=== PATIENT | male | born 1960 | race African-American/Black ===

== ENCOUNTER 2019-04-29 14:17 | Inpatient (IN) | payer OTHER, MEDICAID ==
[~2019-04-29] VITALS: Ht 180.3 cm; Wt 62.7 kg
[~2019-04-29 14:17] MED LIST: RISP1TAB26 PO
[2019-04-29 15:59] LABS: BASOPHILS % (AUTO) 0.9 % (0.0-2.0); EOSINOPHILS % (AUTO) 2.8 % (1.0-6.0); HEMATOCRIT 36.1 % (41-53); HEMOGLOBIN 11.7 g/dL (13.5-17.5); LYMPHOCYTES % (AUTO) 24.4 % (22.0-44.0); MEAN CORPUSCULAR HEMOGLOBIN 28.1 pg (26.0-34.0); MEAN CORPUSCULAR HGB CONC 32.3 G/dL (31.0-37.0); MEAN CORPUSCULAR VOLUME 87 fL (80-100); MONOCYTES # (AUTO) 0.4 K/uL (0.1-1.0); MONOCYTES % (AUTO) 9.9 % (2.0-9.0); NEUTROPHILS # (AUTO) 2.5 K/uL (1.8-7.7); PLATELET COUNT (AUTO) 288 K/uL (150-450); RED BLOOD CELL COUNT(AUTO) 4.15 MIL/uL (4.50-5.90); RED CELL DISTRIBUTION WIDTH 13.4 % (11.5-14.5)
[2019-04-29 16:12] LABS: ANION GAP 8 mmol/L (8-16); CALCIUM, TOTAL 8.8 mg/dL (8.8-10.5); CARBON DIOXIDE 26 mmol/L (22-29); CHLORIDE 104 mmol/L (98-107); CREATININE 1.17 mg/dL (0.60-1.30); GLOMERULAR FILTR. RATE CALC > 60 mL/min (>60); GLUCOSE,RANDOM 79 mg/dL (70-110); POTASSIUM 3.6 mmol/L (3.5-5.1); SODIUM SERUM 138 mmol/L (136-145); UREA NITROGEN, BLOOD 16 mg/dL (7-18)
[2019-04-29 16:17] LABS: ALANINE AMINOTRANSFERASE 14 U/L (12-78); ALKALINE PHOSPHATASE 130 U/L (46-116); ASPARTATE AMINOTRANSFERASE 21 U/L (15-37); BILIRUBIN,TOTAL 0.4 mg/dL (0.1-1.0); TOTAL PROTEIN, SERUM 7.4 g/dL (6.4-8.2)
[2019-04-29] MEDS ORDERED: ZOLPIDEM TARTRATE 10 MG TABLET PO PRN (17:30)
[2019-04-29] MEDS ORDERED: HALOPERIDOL 5 MG TABLET PO PRN (17:30)
[2019-04-29] MEDS ORDERED: LORazepam 2 MG TABLET PO PRN (17:30)
[2019-04-29 20:16] VITALS: BP 117/62
[2019-04-30 05:58] VITALS: BP 107/62
[2019-04-30 06:23] LABS: CHOL/HDL RATIO 2.5 (4.2-7.3); FREE T4 (FREE THYROXINE) 0.9 ng/dL (0.76-1.46); THYROID STIMULATING HORMONE 1.57 uIU/mL (0.36-3.74)
[2019-04-30] MEDS: NICOTINE 14 MG/24 HOUR PATCH TD SCH (09:00)
[2019-04-30 11:23] VITALS: BP 139/69
[2019-04-30 17:40] VITALS: BP 101/61
[2019-05-01 08:45] VITALS: BP 119/78
[2019-05-01] MEDS: NICOTINE 14 MG/24 HOUR PATCH TD SCH (09:00)
[2019-05-01] MEDS: RisperiDONE 1 MG TABLET PO SCH ×2 (09:19→16:25)
[2019-05-01 16:59] VITALS: BP 120/69
[2019-05-02 08:05] VITALS: BP 122/80
[2019-05-02] MEDS: RisperiDONE 1 MG TABLET PO SCH ×2 (08:06→17:32)
[2019-05-02] MEDS: MULTIVITAMINS WITH MINERALS, THERAPEUTIC TABLET PO SCH (08:06)
[2019-05-02] MEDS: NICOTINE 14 MG/24 HOUR PATCH TD SCH (08:12)
[2019-05-02 17:00] VITALS: BP 100/58
[2019-05-03 08:05] VITALS: BP 108/66
[2019-05-03] MEDS: NICOTINE 14 MG/24 HOUR PATCH TD SCH (09:00)
[2019-05-03] MEDS: RisperiDONE 1 MG TABLET PO SCH ×2 (10:06→17:03)
[2019-05-03] MEDS: MULTIVITAMINS WITH MINERALS, THERAPEUTIC TABLET PO SCH (10:06)
[2019-05-03 16:27] VITALS: BP 92/64
[2019-05-04] MEDS: NICOTINE 14 MG/24 HOUR PATCH TD SCH (09:00)
[2019-05-04 10:16] VITALS: BP 90/60
[2019-05-04] MEDS: RisperiDONE 1 MG TABLET PO SCH ×2 (10:42→17:03)
[2019-05-04] MEDS: MULTIVITAMINS WITH MINERALS, THERAPEUTIC TABLET PO SCH (10:42)
[2019-05-04 16:00] VITALS: BP 106/67
[2019-05-05 06:38] VITALS: BP 98/64
[2019-05-05] MEDS: RisperiDONE 1 MG TABLET PO SCH (08:11)
[2019-05-05] MEDS: NICOTINE 14 MG/24 HOUR PATCH TD SCH (08:11)
[2019-05-05] MEDS: MULTIVITAMINS WITH MINERALS, THERAPEUTIC TABLET PO SCH (08:11)
[2019-05-05 08:48] VITALS: BP 103/61
[2019-05-05 16:09] VITALS: BP 122/81
[2019-05-05] MEDS: RisperiDONE 2 MG TABLET PO SCH (16:46)
[2019-05-06 08:00] VITALS: BP 103/53
[2019-05-06] MEDS: MULTIVITAMINS WITH MINERALS, THERAPEUTIC TABLET PO SCH (09:00)
[2019-05-06] MEDS: NICOTINE 14 MG/24 HOUR PATCH TD SCH (09:00)
[2019-05-06] MEDS: RisperiDONE 2 MG TABLET PO SCH ×2 (09:01→16:51)
[2019-05-06 16:22] VITALS: BP 107/71
[2019-05-07] MEDS: NICOTINE 14 MG/24 HOUR PATCH TD SCH (09:00)
[2019-05-07] MEDS: MULTIVITAMINS WITH MINERALS, THERAPEUTIC TABLET PO SCH (09:00)
[2019-05-07] MEDS: RisperiDONE 2 MG TABLET PO SCH (09:29)
[2019-05-07 10:07] VITALS: BP 127/87
[2019-05-07] MEDS ORDERED: RISP2 PO (11:58)
== END 2019-05-07 15:15 | disposition home or self-care (01) | DRG 885 ==
LOC: EMS 14:17 → 3EX 18:41
PROVIDERS: ADMIT Psychiatry & Neurology Psychiatry; ATTEND Psychiatry & Neurology Psychiatry
DX: F20.0 Paranoid schizophrenia (principal); F12.90 Cannabis use, unspecified, uncomplicated; D72.819 Decreased white blood cell count, unspecified; D64.9 Anemia, unspecified; F17.210 Nicotine dependence, cigarettes, uncomplicated; F15.90 Other stimulant use, unspecified, uncomplicated; Z88.6 Allergy status to analgesic agent; Z88.0 Allergy status to penicillin; Z88.8 Allergy status to other drugs, medicaments and biological substances; Z91.018 Allergy to other foods
CPT/HCPCS: 84439; 84443; G0378; G0480

== ENCOUNTER 2019-06-22 18:47 | Inpatient (IN) | payer MEDICARE, MEDICAID ==
[~2019-06-22] VITALS: Ht 180.3 cm; Wt 61.7 kg
[~2019-06-22 18:47] MED LIST changes: -RISP1TAB26 PO; +RISP2 PO
[2019-06-22] MEDS ORDERED: HALOPERIDOL LACTATE 5 MG/ML VIAL IM ONE (19:00)
[2019-06-22] MEDS ORDERED: LORazepam 2 MG/ML VIAL IM ONE (19:00)
[2019-06-22] MEDS ORDERED: DiphenhydrAMINE HCL 50 MG/ML VIAL IM ONE (19:00)
[2019-06-22 19:21] LABS: BASOPHILS % (AUTO) 0.9 % (0.0-2.0); EOSINOPHILS % (AUTO) 2.1 % (1.0-6.0); HEMATOCRIT 39.9 % (41-53); HEMOGLOBIN 12.8 g/dL (13.5-17.5); LYMPHOCYTES # (AUTO) 1.2 K/uL (1.0-4.8); LYMPHOCYTES % (AUTO) 19.7 % (22.0-44.0); MEAN CORPUSCULAR HEMOGLOBIN 28.2 pg (26.0-34.0); MEAN CORPUSCULAR VOLUME 88 fL (80-100); MONOCYTES # (AUTO) 0.5 K/uL (0.1-1.0); NEUTROPHILS # (AUTO) 4.2 K/uL (1.8-7.7); NEUTROPHILS % (AUTO) 69.3 % (40.0-70.0); PLATELET COUNT (AUTO) 325 K/uL (150-450); RED BLOOD CELL COUNT(AUTO) 4.54 MIL/uL (4.50-5.90); RED CELL DISTRIBUTION WIDTH 13.6 % (11.5-14.5)
[2019-06-22 19:33] LABS: ANION GAP 11 mmol/L (8-16); CALCIUM, TOTAL 9.7 mg/dL (8.8-10.5); CARBON DIOXIDE 26 mmol/L (22-29); CHLORIDE 104 mmol/L (98-107); CREATININE 1.71 mg/dL (0.60-1.30); GLOMERULAR FILTR. RATE CALC 50 mL/min (>60); GLUCOSE,RANDOM 102 mg/dL (70-110); POTASSIUM 4.2 mmol/L (3.5-5.1); SODIUM SERUM 141 mmol/L (136-145); UREA NITROGEN, BLOOD 14 mg/dL (7-18)
[2019-06-22 19:40] LABS: ALANINE AMINOTRANSFERASE 12 U/L (12-78); ALBUMIN 3.5 g/dL (3.4-5.0); ALKALINE PHOSPHATASE 140 U/L (46-116); ASPARTATE AMINOTRANSFERASE 20 U/L (15-37); BILIRUBIN,TOTAL 0.4 mg/dL (0.1-1.0); TOTAL PROTEIN, SERUM 7.9 g/dL (6.4-8.2)
[2019-06-23 03:45] LABS: AMPHET/METH SCREEN,URINE POSITIVE (NEGATIVE); BARBITURATE SCREEN, URINE NEGATIVE (NEGATIVE); BENZODIAZEPINES SCREEN,URINE NEGATIVE (NEGATIVE); CANNABINOID SCREEN,URINE POSITIVE (NEGATIVE); COCAINE SCREEN,URINE POSITIVE (NEGATIVE); METHADONE SCREEN, URINE NEGATIVE (NEGATIVE); OPIATE SCREEN,URINE NEGATIVE (NEGATIVE); PHENCYCLIDINE SCREEN,URINE NEGATIVE (NEGATIVE)
[2019-06-23] MEDS ORDERED: LORazepam 2 MG TABLET PO PRN (09:45)
[2019-06-23] MEDS ORDERED: ZOLPIDEM TARTRATE 10 MG TABLET PO PRN (09:45)
[2019-06-23] MEDS ORDERED: HALOPERIDOL 5 MG TABLET PO PRN (09:45)
[2019-06-23 16:03] VITALS: BP 103/54
[2019-06-23] MEDS: RisperiDONE 2 MG TABLET PO SCH (16:37)
[2019-06-24] MEDS: RisperiDONE 2 MG TABLET PO SCH ×2 (09:40→16:26)
[2019-06-24 11:32] VITALS: BP 113/68
[2019-06-24] MEDS: MULTIVITAMINS WITH MINERALS, THERAPEUTIC TABLET PO SCH ×2 (12:45→13:32)
[2019-06-24 17:13] VITALS: BP 109/62
[2019-06-25 01:45] VITALS: BP 139/57
[2019-06-25 06:51] LABS: ANION GAP 9 mmol/L (8-16); CALCIUM, TOTAL 8.9 mg/dL (8.8-10.5); CARBON DIOXIDE 26 mmol/L (22-29); CHLORIDE 100 mmol/L (98-107); CREATININE 1.28 mg/dL (0.60-1.30); GLOMERULAR FILTR. RATE CALC > 60 mL/min (>60); GLUCOSE,RANDOM 116 mg/dL (70-110); POTASSIUM 3.9 mmol/L (3.5-5.1); SODIUM SERUM 135 mmol/L (136-145); UREA NITROGEN, BLOOD 25 mg/dL (7-18)
[2019-06-25] MEDS: RisperiDONE 2 MG TABLET PO SCH ×2 (08:43→17:01)
[2019-06-25] MEDS: MULTIVITAMINS WITH MINERALS, THERAPEUTIC TABLET PO SCH (08:43)
[2019-06-25 09:00] VITALS: BP 111/68
[2019-06-25 16:15] VITALS: BP 113/60
[2019-06-26] MEDS: RisperiDONE 2 MG TABLET PO SCH ×2 (08:04→17:10)
[2019-06-26] MEDS: MULTIVITAMINS WITH MINERALS, THERAPEUTIC TABLET PO SCH (08:08)
[2019-06-26 09:27] VITALS: BP 103/76
[2019-06-26 18:20] VITALS: BP 113/65
[2019-06-27] MEDS: RisperiDONE 2 MG TABLET PO SCH ×2 (08:55→16:58)
[2019-06-27] MEDS: MULTIVITAMINS WITH MINERALS, THERAPEUTIC TABLET PO SCH (09:00)
[2019-06-27 09:30] VITALS: BP 104/69
[2019-06-27 17:00] VITALS: BP 105/71
[2019-06-28 08:25] VITALS: BP 108/66
[2019-06-28] MEDS: RisperiDONE 2 MG TABLET PO SCH ×2 (08:25→16:51)
[2019-06-28] MEDS: MULTIVITAMINS WITH MINERALS, THERAPEUTIC TABLET PO SCH (08:27)
[2019-06-28 17:00] VITALS: BP 105/53
[2019-06-29 01:17] VITALS: BP 130/75
[2019-06-29 08:00] VITALS: BP 98/60
[2019-06-29] MEDS: MULTIVITAMINS WITH MINERALS, THERAPEUTIC TABLET PO SCH (09:00)
[2019-06-29] MEDS: RisperiDONE 2 MG TABLET PO SCH (09:06)
== END 2019-06-29 14:38 | disposition home or self-care (01) | DRG 885 ==
LOC: EMS 18:50 → 3EX 06-23 10:30
PROVIDERS: ADMIT Psychiatry & Neurology Psychiatry; ATTEND Psychiatry & Neurology Psychiatry
DX: F20.0 Paranoid schizophrenia (principal); N17.9 Acute kidney failure, unspecified; R45.851 Suicidal ideations; D64.9 Anemia, unspecified; F17.210 Nicotine dependence, cigarettes, uncomplicated; F15.10 Other stimulant abuse, uncomplicated; F12.10 Cannabis abuse, uncomplicated; Z78.1 Physical restraint status; Z88.6 Allergy status to analgesic agent; Z88.0 Allergy status to penicillin; Z91.018 Allergy to other foods; Z91.048 Other nonmedicinal substance allergy status; Z79.899 Other long term (current) drug therapy
CPT/HCPCS: 80074; G0378; G0480; J1200; J1630; J2060

== ENCOUNTER 2019-08-10 13:34 | Emergency (ER) | payer MEDICARE, MEDICAID ==
[~2019-08-10] VITALS: Ht 177.8 cm; Wt 66.3 kg
[2019-08-10] MEDS ORDERED: DiphenhydrAMINE HCL 50 MG/ML VIAL IM ONE (17:30)
[2019-08-10] MEDS ORDERED: HALOPERIDOL LACTATE 5 MG/ML VIAL IM ONE (17:30)
[2019-08-10] MEDS ORDERED: LORazepam 2 MG/ML VIAL IM ONE (17:30)
[2019-08-10] MEDS ORDERED: HALOPERIDOL 5 MG TABLET ONE (17:32)
[2019-08-10] MEDS ORDERED: LORazepam 2 MG TABLET ONE (17:32)
[2019-08-10] MEDS ORDERED: DiphenhydrAMINE HCL 50 MG CAPSULE ONE (17:34)
[2019-08-10] MEDS ORDERED: HALOPERIDOL 5 MG TABLET PO ONE (17:45)
[2019-08-10] MEDS ORDERED: LORazepam 2 MG TABLET PO ONE (17:45)
[2019-08-10] MEDS ORDERED: DiphenhydrAMINE HCL 50 MG CAPSULE PO ONE (17:45)
[2019-08-10 18:26] LABS: BASOPHILS % (AUTO) 0.7 % (0.0-2.0); EOSINOPHILS % (AUTO) 1.9 % (1.0-6.0); HEMATOCRIT 36.6 % (41-53); HEMOGLOBIN 12.2 g/dL (13.5-17.5); LYMPHOCYTES # (AUTO) 1.2 K/uL (1.0-4.8); LYMPHOCYTES % (AUTO) 22.2 % (22.0-44.0); MEAN CORPUSCULAR HEMOGLOBIN 28.6 pg (26.0-34.0); MEAN CORPUSCULAR HGB CONC 33.2 G/dL (31.0-37.0); MEAN CORPUSCULAR VOLUME 86 fL (80-100); MONOCYTES # (AUTO) 0.5 K/uL (0.1-1.0); MONOCYTES % (AUTO) 9.7 % (2.0-9.0); NEUTROPHILS # (AUTO) 3.4 K/uL (1.8-7.7); NEUTROPHILS % (AUTO) 65.5 % (40.0-70.0); PLATELET COUNT (AUTO) 268 K/uL (150-450); RED BLOOD CELL COUNT(AUTO) 4.24 MIL/uL (4.50-5.90); RED CELL DISTRIBUTION WIDTH 13.5 % (11.5-14.5)
[2019-08-10 18:36] LABS: ANION GAP 10 mmol/L (8-16); CALCIUM, TOTAL 8.9 mg/dL (8.8-10.5); CARBON DIOXIDE 25 mmol/L (22-29); CHLORIDE 105 mmol/L (98-107); CREATININE 1.31 mg/dL (0.60-1.30); GLOMERULAR FILTR. RATE CALC > 60 mL/min (>60); GLUCOSE,RANDOM 79 mg/dL (70-110); POTASSIUM 3.9 mmol/L (3.5-5.1); SODIUM SERUM 140 mmol/L (136-145); UREA NITROGEN, BLOOD 25 mg/dL (7-18)
[2019-08-10 18:42] LABS: ALANINE AMINOTRANSFERASE 16 U/L (12-78); ALBUMIN 3.5 g/dL (3.4-5.0); ALKALINE PHOSPHATASE 140 U/L (46-116); ASPARTATE AMINOTRANSFERASE 21 U/L (15-37); BILIRUBIN,TOTAL 0.5 mg/dL (0.1-1.0); TOTAL PROTEIN, SERUM 8.1 g/dL (6.4-8.2)
[2019-08-10 18:51] VITALS: BP 129/76
== END 2019-08-10 20:52 | disposition home or self-care (01) ==
LOC: EMS 13:35
DX: F20.9 Schizophrenia, unspecified (principal); F17.210 Nicotine dependence, cigarettes, uncomplicated; F12.90 Cannabis use, unspecified, uncomplicated; F19.90 Other psychoactive substance use, unspecified, uncomplicated; Z88.6 Allergy status to analgesic agent; Z88.0 Allergy status to penicillin; Z88.8 Allergy status to other drugs, medicaments and biological substances; Z91.018 Allergy to other foods
CPT/HCPCS: 36415; 80053; 85025; 99285; G0480; J1200; J1630; J2060

== ENCOUNTER 2019-10-08 18:04 | Emergency (ER) | payer OTHER ==
[~2019-10-08] VITALS: Ht 180.3 cm; Wt 6.4 kg
[2019-10-08 18:31] VITALS: BP 108/72
== END 2019-10-08 21:31 | disposition home or self-care (01) ==
LOC: EMS 18:06
DX: S02.5XXA Fracture of tooth (traumatic), initial encounter for closed fracture (principal); K04.7 Periapical abscess without sinus; R51 Headache; R42 Dizziness and giddiness; F17.210 Nicotine dependence, cigarettes, uncomplicated; F12.90 Cannabis use, unspecified, uncomplicated; F15.90 Other stimulant use, unspecified, uncomplicated; Z79.899 Other long term (current) drug therapy; Z88.0 Allergy status to penicillin; Z88.8 Allergy status to other drugs, medicaments and biological substances; Z91.018 Allergy to other foods; Y04.0XXA Assault by unarmed brawl or fight, initial encounter; Y93.89 Activity, other specified; Y92.89 Other specified places as the place of occurrence of the external cause; Y99.8 Other external cause status
CPT/HCPCS: 70450; 70486

== ENCOUNTER 2021-12-06 04:27 | Emergency (ER) | payer OTHER ==
[~2021-12-06] VITALS: Ht 180.3 cm; Wt 70.5 kg
[~2021-12-06 04:27] MED LIST changes: -RISP2 PO; +RISP2TAB45 PO
[2021-12-06] MEDS ORDERED: ACETAMINOPHEN 500 MG TABLET PO ONE (06:30)
[2021-12-06 06:48] VITALS: BP 117/73
== END 2021-12-06 07:24 | disposition home or self-care (01) ==
LOC: EMS 04:28
DX: S50.11XA Contusion of right forearm, initial encounter (principal); S80.11XA Contusion of right lower leg, initial encounter; S00.83XA Contusion of other part of head, initial encounter; F12.90 Cannabis use, unspecified, uncomplicated; F15.90 Other stimulant use, unspecified, uncomplicated; F17.210 Nicotine dependence, cigarettes, uncomplicated; Z88.0 Allergy status to penicillin; Z88.6 Allergy status to analgesic agent; Z79.899 Other long term (current) drug therapy; Z88.8 Allergy status to other drugs, medicaments and biological substances; Y00.XXXA Assault by blunt object, initial encounter; Y93.89 Activity, other specified; Y92.89 Other specified places as the place of occurrence of the external cause; Y99.8 Other external cause status
CPT/HCPCS: 99283